=== PATIENT | female | born 1955 | race Caucasian/White ===

== ENCOUNTER 2020-08-08 23:52 | Emergency (ER) | payer SELFPAY ==
[~2020-08-08] VITALS: Ht 157.5 cm; Wt 90.7 kg
[~2020-08-08 23:52] MED LIST: ASPI81EC PO; CAPT25 PO; CAPT50 PO; FURO20 PO; HYDCHL25 PO; IRBESARTAN300 MG; Lopressor 25 mg25 MG PO; METF500; MULVITMIND PO; OMEP20ER PO; POTCHL20ER PO; SERT50
[2020-08-09] MEDS ORDERED: PRED20 PO (02:17)
[2020-08-09] MEDS ORDERED: CYCL10 PO (02:17)
== END 2020-08-09 02:55 | disposition home or self-care (01) ==
LOC: ER 23:52
DX: M54.16 Radiculopathy, lumbar region (principal); I10 Essential (primary) hypertension; E11.9 Type 2 diabetes mellitus without complications; Z88.4 Allergy status to anesthetic agent; Z88.8 Allergy status to other drugs, medicaments and biological substances
CPT/HCPCS: 72100; 99283-25; A9270

== ENCOUNTER 2022-12-03 14:16 | Emergency (ER) | payer OTHER ==
[~2022-12-03] VITALS: Ht 157.5 cm; Wt 90.7 kg
[~2022-12-03 14:16] MED LIST changes: +CYCL10 PO; +PRED20 PO
[2022-12-03] MEDS ORDERED: Percocet 5-3251 EACH PO (16:37)
[2022-12-03 16:52] VITALS: BP 211/81
== END 2022-12-03 16:56 | disposition home or self-care (01) ==
LOC: ER 14:16
DX: S42.202A Unspecified fracture of upper end of left humerus, initial encounter for closed fracture (principal); S42.212A Unspecified displaced fracture of surgical neck of left humerus, initial encounter for closed fracture; W01.0XXA Fall on same level from slipping, tripping and stumbling without subsequent striking against object, initial encounter; Z88.8 Allergy status to other drugs, medicaments and biological substances; Z79.82 Long term (current) use of aspirin; Z79.899 Other long term (current) drug therapy; E11.9 Type 2 diabetes mellitus without complications; I10 Essential (primary) hypertension
CPT/HCPCS: 73030; 96372; 99283-25; A9270; J1885